=== PATIENT | female | born 1995 | race Caucasian/White ===

== ENCOUNTER 2019-04-18 16:59 | Emergency (ER) | payer OTHER ==
[~2019-04-18] VITALS: Ht 170.2 cm; Wt 61.2 kg
[2019-04-18 17:05] VITALS: BP 108/59
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
[2019-04-18] MEDS ORDERED: KETOROLAC 60 MG/2 ML VIAL. IM ONE (17:30)
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
[2019-04-18] MEDS ORDERED: ORPH100T PO (19:26)
== END 2019-04-18 19:40 | disposition home or self-care (01) ==
LOC: ER 16:59
DX: M25.561 Pain in right knee (principal); M54.5 Low back pain; M54.2 Cervicalgia; V43.52XA Car driver injured in collision with other type car in traffic accident, initial encounter; Y93.89 Activity, other specified; Y92.410 Unspecified street and highway as the place of occurrence of the external cause; Y99.8 Other external cause status
CPT/HCPCS: 72125; 72131; 73564; 81025; 96372; 99284; J1885

== ENCOUNTER 2020-01-22 06:08 | Day surgery (SDC) | payer BC ==
[~2020-01-22 06:08] MED LIST: CITA10TA4 PO; DIAZ5TAB PO; ORPH100T PO
[2020-01-22] MEDS ORDERED: GELATIN SPONGE SIZE 12-7MM SPONGE. ONE (07:00)
[2020-01-22] MEDS ORDERED: LIDOCAINE 1% PF 2 ML VIAL. ID PRN (07:00)
[2020-01-22] MEDS ORDERED: ONDANSETRON PF 4 MG/2 ML VIAL. IV PRN (07:00)
[2020-01-22] MEDS ORDERED: fentaNYL PF VIAL 100 MCG/2 ML VIAL IV PRN ×2 (07:00)
[2020-01-22] MEDS ORDERED: IV RINGERS,LACTATED 1000ML 1,000 ML IV SCH (07:00)
[2020-01-22] MEDS ORDERED: PROCHLORPERAZINE 10 MG/2 ML VIAL. IV PRN (07:00)
[2020-01-22] MEDS ORDERED: HYDROmorphone 2 MG/ML VIAL IV PRN (07:00)
[2020-01-22] MEDS ORDERED: MORPHINE SULFATE 2 MG/ML VIAL. IV PRN (07:00)
[2020-01-22] MEDS ORDERED: VASOPRESSIN 20 UNIT/ML VIAL. ONE (07:01)
[2020-01-22] MEDS ORDERED: FERRIC SUBSULFATE 8 ML SOL.W.APPL TP ONE (07:01)
[2020-01-22] MEDS ORDERED: LIDOCAINE 2% PF 5 ML VIAL. ONE (07:13)
[2020-01-22] MEDS ORDERED: fentaNYL PF VIAL 100 MCG/2 ML VIAL ONE (07:13)
[2020-01-22] MEDS ORDERED: PROPOFOL 10 MG/ML (20ML) VIAL. IV ONE (07:13)
[2020-01-22 07:18] LABS: BASO % 1 % (0-3); EOS # 0.4 x10^3/uL (0.0-0.7); EOS % 7 % (0-3); HEMATOCRIT 40.2 % (36.0-47.0); HEMOGLOBIN 13.4 g/dL (12.0-15.5); LYMPH # 1.9 x10^3/uL (1.0-4.8); LYMPH % 33 % (24-48); MEAN CORPUSCULAR HEMOGLOBIN 32 pg (25-35); MEAN CORPUSCULAR HGB CONC 34 g/dL (31-37); MEAN CORPUSCULAR VOLUME 94 fL (79-100); MONO # 0.5 x10^3/uL (0.0-1.1); MONO % 9 % (0-9); NEUT # 2.9 x10^3/uL (1.8-7.7); NEUT % 51 % (31-73); PLATELET COUNT 308 x10^3/uL (140-400); RED BLOOD COUNT 4.27 x10^6/uL (3.50-5.40); RED CELL DISTRIBUTION WIDTH 13.3 % (11.5-14.5); WHITE BLOOD COUNT 5.7 x10^3/uL (4.0-11.0)
[2020-01-22] MEDS ORDERED: DEXAMETHASONE SOD PHOS 4 MG/ML VIAL ONE (07:36)
[2020-01-22] MEDS ORDERED: SEVOFLURANE 16 TO 30 MINUTES. IH ONE (07:36)
[2020-01-22] MEDS ORDERED: ONDANSETRON PF 4 MG/2 ML VIAL. ONE (07:36)
--- NOTE | 2020-01-22 08:13 | PDOC4 ---
OPERATIVE NOTE: PreOp Dx: ENIO II PostOp Dx: same Procedure: CKC, ECC Surgeon: Shantelle Castro Anesthesia: LMA EBL: 100cc UOP: 60cc (straight cath) Complications: None Specimen: cone and ECC Findings: lesion at 3 o'clock contained in specimen CHEYENNE CASTRO MD January 22, 2020 08:13
[2020-01-22] MEDS ORDERED: OXYC1TAB15 PO (08:18)
[2020-01-22] MEDS ORDERED: IBUP-1060 PO (08:18)
[2020-01-22] MEDS ORDERED: IBUPROFEN 200 MG TABLET. PO ONE ×2 (08:44→09:00)
[2020-01-22] MEDS ORDERED: IBUPROFEN 400 MG TABLET. PO ONE (08:45)
[2020-01-22 08:50] VITALS: BP 115/53
--- NOTE | 2020-01-22 10:11 | OP ---
DATE OF SURGERY: 01/22/2020 PREOPERATIVE DIAGNOSES: 1. Low-grade squamous intraepithelial lesion Pap. 2. ENIO 2 on colposcopic biopsy. 3. Negative ECC. POSTOPERATIVE DIAGNOSES: 1. Low-grade squamous intraepithelial lesion Pap. 2. ENIO 2 on colposcopic biopsy. 3. Negative ECC. PROCEDURE: Cold knife cone. SURGEON: Rylan Castro MD ANESTHESIA: LMA ESTIMATED BLOOD LOSS: 100 mL. FINDINGS: A small lesion at 3 o'clock along the transformation zone. Otherwise, normal appearing cervix. COMPLICATIONS: None. SPECIMENS: Cone specimen and ECC. DESCRIPTION OF PROCEDURE: The patient was taken to the operating room where LMA was placed without difficulty. The patient was prepped and draped in normal sterile fashion. Speculum was placed in the patient's vagina to visualize the cervix. The anterior lip of the cervix was then grasped with a single tooth tenaculum. At that point, the right lateral edge of the cervix was then tagged with 3-0 Vicryl. This was performed on the contralateral side as well. At that point, a second single tooth tenaculum was placed in the posterior lip of the cervix. Vasopressin was then circumferentially injected into the cervix. Once a little bit of time had passed, an 11 blade scalpel was used to circumferentially cut the cervix just lateral to the transformation zone. The specimen was then grabbed with Allis and Yobani scissors were used to cut the cone specimen out. The specimen was then tagged at 12 o'clock. An ECC was then performed and collected. The cervical bed was then cauterized until hemostasis was achieved. At that point, Gelfoam was placed in the cervical bed. The two lateral stitches were then tied together to keep the Gelfoam in place. At that point, the tenaculums were removed as well as the speculum. Good hemostasis was noted. The patient was taken to the recovery room in stable condition. RYLAN CASTRO MD DR: JAMISON/clinton JOB#: [id number] / [id number] JUWAN
--- NOTE | 2020-01-25 16:06 | PATHOLOGY ---
[facility] Accession Number: [id number] . 01 Material submitted: . PART A: cervix - CONE SPECIMEN PART B: endocervix - ENDOCERVICAL CURETTINGS . 01 Clinical history: . CIN2 . 02 Diagnosis: A. Uterine cervix, cold cone biopsy: - Mild to moderate dysplasia (ENIO I-II), focal. - Endocervical and ectocervical margins negative for dysplasia. - Chronic cervicitis with focal squamous metaplasia. . B. Endocervical curettings: - Blood containing strips of benign endocervical and endometrial epithelium and few small segments of proliferative endometrium. LBQ 01/25/2020 1536 Local . 02 Comment: Sections of the cervical cone show focal mild to moderate dysplasia (ENIO I-II) in the region of the transformation zone. The endocervical and ectocervical margins are negative for dysplasia. (JPM/db; 01/25/2020) . 02 Electronically signed: . Benny Parmar MD, Pathologist NPI- [id number] . 01 Gross description: . A. The specimen is received in formalin labeled "Chetna Johnson, cone specimen with suture at 12:00"and consists of an oriented pink-maciel glistening cervical cone measuring 2.1 x 1.8 x 1.2 cm with a suture designating 12:00. The cervical os measures 0.7 cm in diameter. The proximal margin is inked blue and the ectocervical rim is inked black. It is radially sectioned and entirely submitted as follows: A1-A2: 12-3:00 A3: 3-6:00 A4: 6-9:00 A5: 9-12:00 . B. The specimen is received in formalin labeled "Chetna Johnson, endocervical curettings" and consists of hemorrhagic mucoid material measuring 1.3 x 0.5 x 0.1 cm which is entirely submitted in B1. ([facility]; 01/22/2020) JFQ/JFParth 01/25/2020 1026 Local . 02 Pathologist provided ICD-10: N87.1, N72 . 02 CPT . 160151, 312199 Specimen Comment: A courtesy copy of this report has been sent to [phone], [phone] Specimen Comment: [id number] Specimen Comment: Report sent to / DR JERRY Performed at: 01 [facility] [address], [place] [id number] MD Eddie Leong MD Phone: [phone] Performed at: 02 [facility] [address] [place], [place] [id number] MD Benny Parmar MD Phone: [phone]
== END 2020-01-22 09:20 | disposition home or self-care (01) ==
LOC: SURG 06:08
PROVIDERS: ATTEND Obstetrics & Gynecology
DX: N87.1 Moderate cervical dysplasia (principal); N72 Inflammatory disease of cervix uteri; F41.9 Anxiety disorder, unspecified; F32.9 Major depressive disorder, single episode, unspecified; F17.210 Nicotine dependence, cigarettes, uncomplicated; Z79.899 Other long term (current) drug therapy; Z88.8 Allergy status to other drugs, medicaments and biological substances
CPT/HCPCS: 36415; 57520; 81025; 85025; 86850; 86900; 86901; A7015; J1100; J2405; J2704; J3010; J3490; A4461